=== PATIENT | male | born 1965 | race Caucasian/White ===

== ENCOUNTER 2021-02-07 16:00 | Outpatient (RCR) | payer OTHER, SELFPAY ==
--- NOTE | 2020-12-31 16:45 | PT.OIE ---
Current Diagnoses Pain in right shoulder (12/31/20) Visit Care Team Role Provider Type Javon Ramirez MD Attending Provider Non-Staff Primary Care Provider Referring Provider Specialty: Medical Address: [address] [place] [address], [place], [address] Email: Physical Therapy Initial Evaluation PT-OP-A Visit Information Start: 12/31/20 16:56 Freq: Status: Active Protocol: Document 12/31/20 16:00 DCW (Rec: 12/31/20 17:07 [facility] [id number]) Out-Patient Physical Therapy Visit Information Visit Information Visit Type Initial Evaluation Visit Start Time 16:00 Visit Stop Time 16:45 Total Visit Minutes 45 Visit Number 1 Number of LABORATORY TESTER Visits 0 Evaluation Information Evaluation Date 12/31/20 PT-OP-B Current Condition Start: 12/31/20 16:56 Freq: Status: Active Protocol: Document 12/31/20 16:00 DCW (Rec: 12/31/20 17:07 [facility] [id number]) Current Condition History of Current Condition Onset Date ~8 months Current Complaints Right shoulder pain, ROM limitations History of Current Condition Pt is a 55 year old male presenting with a right shoulder injury that occurred last fall. Pt notes he was throwing a ball with his dog, and suddenly got a huge pain along the top of his right shoulder blade. Notes the pain only lasted a few seconds, but then over the next few months, he began to lose more and more range of motion. Does admit that over the last month, he has noticed some mild improvements, so he believes he is beginning to get better, but his shoulder is still significantly restricted. Pt notes he is unable to lift anything overhead, has difficulty writing on a whiteboard, taking off shirts is painful, and he has even noticed some difficulty when playing his guitar. PT-OP-C Subjective Start: 12/31/20 16:56 Freq: Status: Active Protocol: Document 12/31/20 16:00 DCW (Rec: 12/31/20 17:07 [facility] [id number]) OP-PT Subjective Patient Comments Patient Comments My is recovering from a pretty recent shoulder surgery , and I was trying to do her exercises with her, and as she was getting better, my shoulder was getting even worse. Patient Reported Progress Improving Patient Questionnaires Quick Dash- Upper Extremity Quick Dash UE Score 36.36% Quick Dash UE Impairment 20 to 39% Impaired (Score 20- 39) OP-PT Pain Assessment Pain Assessment Grid Paper Pain Assessment Grid Completed Yes Location Right Shoulder Intensity 6 Scale Used Numeric (0 - 10) PT-OP-E Functional Tests Start: 12/31/20 16:56 Freq: Status: Active Protocol: Document 12/31/20 16:00 DCW (Rec: 01/03/21 09:39 DCW [id number]) Functional Tests Apley's Scratch Test Action 1- Left Posterior opposite shoulder Action 1- Right Anterior opposite shoulder Action 2- Left T5 Action 2- Right C7 Action 3- Left T10 Action 3- Right Right glute PT-OP-F Manual Assessment Start: 12/31/20 16:56 Freq: Status: Active Protocol: Document 12/31/20 16:00 DCW (Rec: 01/03/21 09:39 DCW [id number]) Manual Assessments Soft Tissue Assessment Soft Tissue Mobility Assessment Severe tone with tenderness to palpation 3/4: wincing and withdraw along right supraspinatus, right subscapularis, right upper trap PT-OP-K Range of Motion Start: 12/31/20 16:56 Freq: Status: Active Protocol: Document 12/31/20 16:00 DCW (Rec: 01/03/21 09:39 DCW [id number]) Shoulder Goniometric Range of Motion Shoulder Right Passive Flexion 156 Abduction 164 Right Active Testing Position Sitting Flexion 106 Abduction 84 External Rotation at 0 degrees Abduction 34 Internal Rotation Behind Back (text) Right glute max Left Active Shoulder ROM WFL Yes PT-OP-L Special Tests Start: 12/31/20 16:56 Freq: Status: Active Protocol: Document 12/31/20 16:00 DCW (Rec: 01/03/21 09:43 DCW [id number]) Special Tests Shoulder Special Tests Speed's Biceps Test Results Right LH Biceps pain Passive ER Rotator Cuff Test Results Negative Painful Arc Test Results Positive Right Lift-Off Rotator Cuff Test Results Unable to position Right Price Jossue Impingement Test Results Negative Grind Labrum Test Results Negative Empty Can Test Results Negative Drop Arm Rotator Cuff Test Results Positive Right Clunk Test Test Results Negative Belly Press Test Results Negative Apprehension Test Test Results Negative PT-OP-M Strength Start: 12/31/20 16:56 Freq: Status: Active Protocol: Document 12/31/20 16:00 DCW (Rec: 01/03/21 09:43 DC [id number]) Shoulder Strength Shoulder Manual Muscle Testing Right Flexion 3- Fair- Abduction (C5) 2 Poor External Rotation 3+ Fair+ Internal Rotation 5 Normal Left Flexion 5 Normal Abduction (C5) 5 Normal External Rotation 5 Normal Internal Rotation 5 Normal PT-OP-T Assessment and Plan Start: 12/31/20 16:56 Freq: Status: Active Protocol: Document 12/31/20 16:00 DCW (Rec: 12/31/20 17:22 DC [id number]) Physical Therapy Assessment Rehab Potential Rehabilitation Potential Good Evaluation Complexity Number of Personal Factors/Comorbidities 0 Number of Body Systems Impaired 1-2 Clinical Presentation at Evaluation Stable Impairments Impairments Functional Activities, Functional Mobility,Pain, Posture,ROM,Soft Tissue Mobility,Strength,Tone Goals Three Impairment Right shoulder weakness limits pt's ability to lift items overhead Knitted Goods Shaper Goal (LTG) Pt to MMT right shoulder flexion and abduction >3+/5 to improve overhead mobility. LTG Duration 03/02/21 Two Impairment Limited ROM creates difficulty for pt to don/doff shirt Knitted Goods Shaper Goal (LTG) Pt to demonstrate improved right shoulder internal rotation back to L3 and improved abduction to 120? to improve ability to don and doff his shirts LTG Duration 03/02/21 One Impairment Pt does not have an appropriate home exercise program Short Term Goal (STG) Pt to be independent and compliant with an appropriate HEP STG Duration 01/30/21 Assessment Summary Assessment Pt presents with signs and symptoms consistent with right supraspinatus injury. Without imagining, difficulty to determine strain vs tear, however pt is around eight months out from injury and is only now seeing improvement, which may suggest a more severe injury. Pt overall limited with right ROM, especially abduction (84?) and flexion (106?). Pt demonstrates positive special testing, including painful arc and drop arm, as well as moderate supraspinatus tone and decreased scapulothoracic rhythm. Pt should benefit from skilled therapy focusing on shoulder flexibility, strengthening, STM, and patient education. If pt does no progress with physical therapy, may need to consider an MRI to rule in or out underlying damage. Physical Therapy Plan Frequency and Duration Frequency of Treatment 2x/Week Duration of Treatment Two months Plan of Care Start Date 12/31/20 Plan of Care End Date 03/02/21 Therapeutic Interventions Therapeutic Interventions Home Exercise Program,Joint Mobilizations,Manual Therapy, Neuromuscular Re-education, Patient/Caregiver Education, Self-Care/Home Management,Soft Tissue Mobilization, Therapeutic Exercises Modalities Cold Pack/Ice Massage,Electric Stimulation,Hot Packs, Ultrasound Next Visit Focus/Plan Next Note Type Treatment Note Next Visit Plan Shoulder ROM/strengthening, STM
--- NOTE | 2020-12-31 16:45 | PT.OPPOC ---
Physical, Occupational & Speech Therapy At [facility] Current Diagnoses Pain in right shoulder (12/31/20) Visit Care Team Role Provider Type Javon Ramirez MD Attending Provider Non-Staff Primary Care Provider Referring Provider Specialty: Medical Address: [address] [place] [address], [place], [address] Email: Plan Of Care PT-OP-T Assessment and Plan Start: 12/31/20 16:56 Freq: Status: Active Protocol: Document 12/31/20 16:00 DCW (Rec: 12/31/20 17:22 DCW [id number]) Physical Therapy Assessment Rehab Potential Rehabilitation Potential Good Evaluation Complexity Number of Personal Factors/Comorbidities 0 Number of Body Systems Impaired 1-2 Clinical Presentation at Evaluation Stable Impairments Impairments Functional Activities, Functional Mobility,Pain, Posture,ROM,Soft Tissue Mobility,Strength,Tone Goals Three Impairment Right shoulder weakness limits pt's ability to lift items overhead Halfway Goal (LTG) Pt to MMT right shoulder flexion and abduction >3+/5 to improve overhead mobility. LTG Duration 03/02/21 Two Impairment Limited ROM creates difficulty for pt to don/doff shirt Steel Checker Goal (LTG) Pt to demonstrate improved right shoulder internal rotation back to L3 and improved abduction to 120? to improve ability to don and doff his shirts LTG Duration 03/02/21 One Impairment Pt does not have an appropriate home exercise program Short Term Goal (STG) Pt to be independent and compliant with an appropriate HEP STG Duration 01/30/21 Assessment Summary Assessment Pt presents with signs and symptoms consistent with right supraspinatus injury. Without imagining, difficulty to determine strain vs tear, however pt is around eight months out from injury and is only now seeing improvement, which may suggest a more severe injury. Pt overall limited with right ROM, especially abduction (84?) and flexion (106?). Pt demonstrates positive special testing, including painful arc and drop arm, as well as moderate supraspinatus tone and decreased scapulothoracic rhythm. Pt should benefit from skilled therapy focusing on shoulder flexibility, strengthening, STM, and patient education. If pt does no progress with physical therapy, may need to consider an MRI to rule in or out underlying damage. Physical Therapy Plan Frequency and Duration Frequency of Treatment 2x/Week Duration of Treatment Two months Plan of Care Start Date 12/31/20 Plan of Care End Date 03/02/21 Therapeutic Interventions Therapeutic Interventions Home Exercise Program,Joint Mobilizations,Manual Therapy, Neuromuscular Re-education, Patient/Caregiver Education, Self-Care/Home Management,Soft Tissue Mobilization, Therapeutic Exercises Modalities Cold Pack/Ice Massage,Electric Stimulation,Hot Packs, Ultrasound Next Visit Focus/Plan Next Note Type Treatment Note Next Visit Plan Shoulder ROM/strengthening, STM Plan of Care Dates Plan of Care Start Date 12/31/20 Plan of Care End Date 03/02/21 Electronically Signed by: João Elena, PT 01/03/21 0944 Please Sign and Return: I have reviewed this Plan of Care and certify that the skilled therapy services above are required to meet the patient?s needs. Physician Signature Date Printed Name and Credentials Clinical Instructor Signature Printed Name and Credentials
--- NOTE | 2021-01-04 16:45 | PT.OTN ---
Current Diagnoses Pain in right shoulder (01/04/21) Physical Therapy Treatment Note PT-OP-A Visit Information Start: 12/31/20 16:56 Freq: Status: Active Protocol: Document 01/04/21 16:00 DCW (Rec: 01/04/21 16:45 DCW [id number]) Out-Patient Physical Therapy Visit Information Visit Information Visit Type Treatment Note Visit Start Time 16:00 Visit Stop Time 16:45 Total Visit Minutes 45 Visit Number 2 Number of LEAF CONDITIONER Visits 0 Evaluation Information Evaluation Date 12/31/20 PT-OP-B Current Condition Start: 12/31/20 16:56 Freq: Status: Active Protocol: Document 12/31/20 16:00 DCW (Rec: 12/31/20 17:07 DCW [id number]) Current Condition History of Current Condition Onset Date ~8 months Current Complaints Right shoulder pain, ROM limitations History of Current Condition Pt is a 55 year old male presenting with a right shoulder injury that occurred last fall. Pt notes he was throwing a ball with his dog, and suddenly got a huge pain along the top of his right shoulder blade. Notes the pain only lasted a few seconds, but then over the next few months, he began to lose more and more range of motion. Does admit that over the last month, he has noticed some mild improvements, so he believes he is beginning to get better, but his shoulder is still significantly restricted. Pt notes he is unable to lift anything overhead, has difficulty writing on a whiteboard, taking off shirts is painful, and he has even noticed some difficulty when playing his guitar. PT-OP-C Subjective Start: 12/31/20 16:56 Freq: Status: Active Protocol: Document 01/04/21 16:00 DCW (Rec: 01/04/21 16:45 DCW [id number]) OP-PT Subjective Patient Comments Patient Comments Pt reports he has been working on the Deep Glint at home to keep his shoulder moving. PT-OP-E Functional Tests Start: 12/31/20 16:56 Freq: Status: Active Protocol: Document 12/31/20 16:00 DCW (Rec: 01/03/21 09:39 DCW [id number]) Functional Tests Zuriey's Scratch Test Action 1- Left Posterior opposite shoulder Action 1- Right Anterior opposite shoulder Action 2- Left T5 Action 2- Right C7 Action 3- Left T10 Action 3- Right Right glute PT-OP-F Manual Assessment Start: 12/31/20 16:56 Freq: Status: Active Protocol: Document 12/31/20 16:00 DCW (Rec: 01/03/21 09:39 DCW [id number]) Manual Assessments Soft Tissue Assessment Soft Tissue Mobility Assessment Severe tone with tenderness to palpation 3/4: wincing and withdraw along right supraspinatus, right subscapularis, right upper trap PT-OP-K Range of Motion Start: 12/31/20 16:56 Freq: Status: Active Protocol: Document 12/31/20 16:00 DCW (Rec: 01/03/21 09:39 DCW [id number]) Shoulder Goniometric Range of Motion Shoulder Right Passive Flexion 156 Abduction 164 Right Active Testing Position Sitting Flexion 106 Abduction 84 External Rotation at 0 degrees Abduction 34 Internal Rotation Behind Back (text) Right glute max Left Active Shoulder ROM WFL Yes PT-OP-L Special Tests Start: 12/31/20 16:56 Freq: Status: Active Protocol: Document 12/31/20 16:00 DCW (Rec: 01/03/21 09:43 DCW [id number]) Special Tests Shoulder Special Tests Speed's Biceps Test Results Right LH Biceps pain Passive ER Rotator Cuff Test Results Negative Painful Arc Test Results Positive Right Lift-Off Rotator Cuff Test Results Unable to position Right Price Jossue Impingement Test Results Negative Grind Labrum Test Results Negative Empty Can Test Results Negative Drop Arm Rotator Cuff Test Results Positive Right Clunk Test Test Results Negative Belly Press Test Results Negative Apprehension Test Test Results Negative PT-OP-M Strength Start: 12/31/20 16:56 Freq: Status: Active Protocol: Document 12/31/20 16:00 DCW (Rec: 01/03/21 09:43 DCW [id number]) Shoulder Strength Shoulder Manual Muscle Testing Right Flexion 3- Fair- Abduction (C5) 2 Poor External Rotation 3+ Fair+ Internal Rotation 5 Normal Left Flexion 5 Normal Abduction (C5) 5 Normal External Rotation 5 Normal Internal Rotation 5 Normal PT-OP-Q Treatments Start: 12/31/20 16:56 Freq: Status: Active Protocol: Document 01/04/21 16:00 DCW (Rec: 01/04/21 16:45 [facility] [id number]) Cardio Equipment Upper Body Ergometer (UBE) Duration (Minutes) 5 RPM 60 Seat Position 11 Height 2.5 Other Fwd/Bkwd Therapeutic Exercises Supine Exercises 1 Supine Exercise Name Serratus punch Side bilateral Standing Exercises 7 Standing Exercise Name PNF D1/D2 Flexion Side right Resistance 3# 6 Standing Exercise Name Shoulder Abduction Side right Resistance Lv 2 Equipment Used T-band Comments Pain-free ROM 5 Standing Exercise Name Shoulder Flexion Side right Resistance Lv 2 Equipment Used T-band Comments Pain-free ROM 4 Standing Exercise Name Shoulder ER/IR Side right Resistance Lv 2 Equipment Used T-band 3 Standing Exercise Name Rows Side bilateral Resistance Lv 2 Equipment Used T-band 2 Standing Exercise Name Shoulder Adduction Side right Resistance Lv 2 Equipment Used T-band 1 Standing Exercise Name Shoulder Extension Side bilateral Resistance Lv 2 Equipment Used T-band Manual Therapy Treatment Soft Tissue Mobilization 3 Body Location R Pec Mobilization Type Strumming,Sustained Pressure 2 Body Location R Subscap Mobilization Type Strumming,Sustained Pressure 1 Body Location R Upper Trap Mobilization Type Strumming,Sustained Pressure Joint Mobilizations 2 Joint R Scapulothoracic Direction Lateral Grade III 1 Joint R GH Direction Inf Grade III PT-OP-T Assessment and Plan Start: 12/31/20 16:56 Freq: Status: Active Protocol: Document 01/04/21 16:00 [facility] (Rec: 01/04/21 16:45 [facility] [id number]) Physical Therapy Assessment Impairments Impairments Functional Activities, Functional Mobility,Pain, Posture,ROM,Soft Tissue Mobility,Strength,Tone Goals Three Impairment Right shoulder weakness limits pt's ability to lift items overhead Half-Way Goal (LTG) Pt to MMT right shoulder flexion and abduction >3+/5 to improve overhead mobility. LTG Duration 03/02/21 Two Impairment Limited ROM creates difficulty for pt to don/doff shirt Senior Adults Director Goal (LTG) Pt to demonstrate improved right shoulder internal rotation back to L3 and improved abduction to 120? to improve ability to don and doff his shirts LTG Duration 03/02/21 One Impairment Pt does not have an appropriate home exercise program Short Term Goal (STG) Pt to be independent and compliant with an appropriate HEP STG Duration 01/30/21 Assessment Summary Assessment Pt tolerated treatment very well today, did not have any complaints of pain, but was more limited due to shoulder stiffness. Pt interested in pec stretch for HEP to help loosen up his shoulder. Physical Therapy Plan Frequency and Duration Frequency of Treatment 2x/Week Duration of Treatment Two months Plan of Care Start Date 12/31/20 Plan of Care End Date 03/02/21 Therapeutic Interventions Therapeutic Interventions Home Exercise Program,Joint Mobilizations,Manual Therapy, Neuromuscular Re-education, Patient/Caregiver Education, Self-Care/Home Management,Soft Tissue Mobilization, Therapeutic Exercises Modalities Cold Pack/Ice Massage,Electric Stimulation,Hot Packs, Ultrasound Next Visit Focus/Plan Next Note Type Treatment Note Next Visit Plan Shoulder ROM/strengthening, STM
--- NOTE | 2021-01-11 16:57 | PT.OTN ---
Current Diagnoses Pain in right shoulder (01/11/21) Physical Therapy Treatment Note PT-OP-A Visit Information Start: 12/31/20 16:56 Freq: Status: Active Protocol: Document 01/11/21 16:00 DCW (Rec: 01/11/21 16:56 DCW [id number]) Out-Patient Physical Therapy Visit Information Visit Information Visit Type Treatment Note Visit Start Time 16:00 Visit Stop Time 16:45 Total Visit Minutes 45 Visit Number 3 Number of CLERK OF SUPERIOR COURT Visits 0 Evaluation Information Evaluation Date 12/31/20 PT-OP-B Current Condition Start: 12/31/20 16:56 Freq: Status: Active Protocol: Document 12/31/20 16:00 DCW (Rec: 12/31/20 17:07 DCW [id number]) Current Condition History of Current Condition Onset Date ~8 months Current Complaints Right shoulder pain, ROM limitations History of Current Condition Pt is a 55 year old male presenting with a right shoulder injury that occurred last fall. Pt notes he was throwing a ball with his dog, and suddenly got a huge pain along the top of his right shoulder blade. Notes the pain only lasted a few seconds, but then over the next few months, he began to lose more and more range of motion. Does admit that over the last month, he has noticed some mild improvements, so he believes he is beginning to get better, but his shoulder is still significantly restricted. Pt notes he is unable to lift anything overhead, has difficulty writing on a whiteboard, taking off shirts is painful, and he has even noticed some difficulty when playing his guitar. PT-OP-C Subjective Start: 12/31/20 16:56 Freq: Status: Active Protocol: Document 01/11/21 16:00 DCW (Rec: 01/11/21 16:56 DCW [id number]) OP-PT Subjective Patient Comments Patient Comments I'm noticing a little less pain with certain things that had been more painful, like washing my hair. I'm working on putting my wallet in my right back pocket, which is still painful, but that's sort of my next measurement of progress, when I can do that without pain. PT-OP-E Functional Tests Start: 12/31/20 16:56 Freq: Status: Active Protocol: Document 12/31/20 16:00 DCW (Rec: 01/03/21 09:39 DCW [id number]) Functional Tests Apley's Scratch Test Action 1- Left Posterior opposite shoulder Action 1- Right Anterior opposite shoulder Action 2- Left T5 Action 2- Right C7 Action 3- Left T10 Action 3- Right Right glute PT-OP-F Manual Assessment Start: 12/31/20 16:56 Freq: Status: Active Protocol: Document 12/31/20 16:00 DCW (Rec: 01/03/21 09:39 DCW [id number]) Manual Assessments Soft Tissue Assessment Soft Tissue Mobility Assessment Severe tone with tenderness to palpation 3/4: wincing and withdraw along right supraspinatus, right subscapularis, right upper trap PT-OP-K Range of Motion Start: 12/31/20 16:56 Freq: Status: Active Protocol: Document 12/31/20 16:00 DCW (Rec: 01/03/21 09:39 DCW [id number]) Shoulder Goniometric Range of Motion Shoulder Right Passive Flexion 156 Abduction 164 Right Active Testing Position Sitting Flexion 106 Abduction 84 External Rotation at 0 degrees Abduction 34 Internal Rotation Behind Back (text) Right glute max Left Active Shoulder ROM WFL Yes PT-OP-L Special Tests Start: 12/31/20 16:56 Freq: Status: Active Protocol: Document 12/31/20 16:00 DCW (Rec: 01/03/21 09:43 DCW [id number]) Special Tests Shoulder Special Tests Speed's Biceps Test Results Right LH Biceps pain Passive ER Rotator Cuff Test Results Negative Painful Arc Test Results Positive Right Lift-Off Rotator Cuff Test Results Unable to position Right Price Jossue Impingement Test Results Negative Grind Labrum Test Results Negative Empty Can Test Results Negative Drop Arm Rotator Cuff Test Results Positive Right Clunk Test Test Results Negative Belly Press Test Results Negative Apprehension Test Test Results Negative PT-OP-M Strength Start: 12/31/20 16:56 Freq: Status: Active Protocol: Document 12/31/20 16:00 DCW (Rec: 01/03/21 09:43 DCW [id number]) Shoulder Strength Shoulder Manual Muscle Testing Right Flexion 3- Fair- Abduction (C5) 2 Poor External Rotation 3+ Fair+ Internal Rotation 5 Normal Left Flexion 5 Normal Abduction (C5) 5 Normal External Rotation 5 Normal Internal Rotation 5 Normal PT-OP-Q Treatments Start: 12/31/20 16:56 Freq: Status: Active Protocol: Document 01/11/21 16:00 DCW (Rec: 01/11/21 16:56 DCW [id number]) Cardio Equipment Upper Body Ergometer (UBE) Duration (Minutes) 5 RPM 60 Seat Position 11 Height 2.5 Other Fwd/Bkwd Therapeutic Exercises Supine Exercises 2 Supine Exercise Name ER/IR in 90/90 Side right Resistance 1.5 kg ball Standing Exercises 7 Standing Exercise Name PNF D1/D2 Flexion Side right Resistance 3# 6 Standing Exercise Name Shoulder Abduction Side right Resistance Lv 2 Equipment Used T-band Comments Pain-free ROM 5 Standing Exercise Name Shoulder Flexion Side right Resistance Lv 2 Equipment Used T-band Comments Pain-free ROM 4 Standing Exercise Name Shoulder ER/IR Side right Resistance Lv 2 Equipment Used T-band 3 Standing Exercise Name Rows Side bilateral Resistance Lv 2 Equipment Used T-band 2 Standing Exercise Name Shoulder Adduction Side right Resistance Lv 2 Equipment Used T-band 1 Standing Exercise Name Shoulder Extension Side bilateral Resistance Lv 2 Equipment Used T-band Manual Therapy Treatment Soft Tissue Mobilization 3 Body Location R Pec Mobilization Type Strumming,Sustained Pressure 2 Body Location R Subscap Mobilization Type Strumming,Sustained Pressure 1 Body Location R Upper Trap Mobilization Type Strumming,Sustained Pressure Joint Mobilizations 2 Joint R Scapulothoracic Direction Lateral Grade III 1 Joint R GH Direction Inf Grade III PT-OP-T Assessment and Plan Start: 12/31/20 16:56 Freq: Status: Active Protocol: Document 01/11/21 16:00 DCW (Rec: 01/11/21 16:56 DCW [id number]) Physical Therapy Assessment Impairments Impairments Functional Activities, Functional Mobility,Pain, Posture,ROM,Soft Tissue Mobility,Strength,Tone Goals Three Impairment Right shoulder weakness limits pt's ability to lift items overhead [facility] Goal (LTG) Pt to MMT right shoulder flexion and abduction >3+/5 to improve overhead mobility. LTG Duration 03/02/21 Two Impairment Limited ROM creates difficulty for pt to don/doff shirt [facility] Goal (LTG) Pt to demonstrate improved right shoulder internal rotation back to L3 and improved abduction to 120? to improve ability to don and doff his shirts LTG Duration 03/02/21 One Impairment Pt does not have an appropriate home exercise program Short Term Goal (STG) Pt to be independent and compliant with an appropriate HEP STG Duration 01/30/21 Assessment Summary Assessment Pt making great progress so far, showing improvement with ROM as well as decreasing pain levels. Pt has been consistent with working on PROM using pullies, but admits he has not been keeping up with strengthening exercises. Physical Therapy Plan Frequency and Duration Frequency of Treatment 2x/Week Duration of Treatment Two months Plan of Care Start Date 12/31/20 Plan of Care End Date 03/02/21 Therapeutic Interventions Therapeutic Interventions Home Exercise Program,Joint Mobilizations,Manual Therapy, Neuromuscular Re-education, Patient/Caregiver Education, Self-Care/Home Management,Soft Tissue Mobilization, Therapeutic Exercises Modalities Cold Pack/Ice Massage,Electric Stimulation,Hot Packs, Ultrasound Next Visit Focus/Plan Next Note Type Treatment Note Next Visit Plan Shoulder ROM/strengthening, STM
--- NOTE | 2021-01-14 16:50 | PT.OTN ---
Current Diagnoses Pain in right shoulder (01/14/21) Physical Therapy Treatment Note PT-OP-A Visit Information Start: 12/31/20 16:56 Freq: Status: Active Protocol: Document 01/14/21 16:00 DCW (Rec: 01/14/21 16:50 [facility] [id number]) Out-Patient Physical Therapy Visit Information Visit Information Visit Type Treatment Note Visit Start Time 16:00 Visit Stop Time 16:45 Total Visit Minutes 45 Visit Number 4 Number of SURFACE SH[employer] SUPERVISOR Visits 0 Evaluation Information Evaluation Date 12/31/20 PT-OP-B Current Condition Start: 12/31/20 16:56 Freq: Status: Active Protocol: Document 12/31/20 16:00 DCW (Rec: 12/31/20 17:07 DCW [id number]) Current Condition History of Current Condition Onset Date ~8 months Current Complaints Right shoulder pain, ROM limitations History of Current Condition Pt is a 55 year old male presenting with a right shoulder injury that occurred last fall. Pt notes he was throwing a ball with his dog, and suddenly got a huge pain along the top of his right shoulder blade. Notes the pain only lasted a few seconds, but then over the next few months, he began to lose more and more range of motion. Does admit that over the last month, he has noticed some mild improvements, so he believes he is beginning to get better, but his shoulder is still significantly restricted. Pt notes he is unable to lift anything overhead, has difficulty writing on a whiteboard, taking off shirts is painful, and he has even noticed some difficulty when playing his guitar. PT-OP-C Subjective Start: 12/31/20 16:56 Freq: Status: Active Protocol: Document 01/14/21 16:00 DCW (Rec: 01/14/21 16:50 DCW [id number]) OP-PT Subjective Patient Comments Patient Comments I was shoveling yesterday, so I'm interested to see how I do today. There were no real problems while I was doing it, though. I have a tendency to overdo things. PT-OP-E Functional Tests Start: 12/31/20 16:56 Freq: Status: Active Protocol: Document 12/31/20 16:00 DCW (Rec: 01/03/21 09:39 DCW [id number]) Functional Tests Apley's Scratch Test Action 1- Left Posterior opposite shoulder Action 1- Right Anterior opposite shoulder Action 2- Left T5 Action 2- Right C7 Action 3- Left T10 Action 3- Right Right glute PT-OP-F Manual Assessment Start: 12/31/20 16:56 Freq: Status: Active Protocol: Document 12/31/20 16:00 DCW (Rec: 01/03/21 09:39 DCW [id number]) Manual Assessments Soft Tissue Assessment Soft Tissue Mobility Assessment Severe tone with tenderness to palpation 3/4: wincing and withdraw along right supraspinatus, right subscapularis, right upper trap PT-OP-K Range of Motion Start: 12/31/20 16:56 Freq: Status: Active Protocol: Document 12/31/20 16:00 DCW (Rec: 01/03/21 09:39 DCW [id number]) Shoulder Goniometric Range of Motion Shoulder Right Passive Flexion 156 Abduction 164 Right Active Testing Position Sitting Flexion 106 Abduction 84 External Rotation at 0 degrees Abduction 34 Internal Rotation Behind Back (text) Right glute max Left Active Shoulder ROM WFL Yes PT-OP-L Special Tests Start: 12/31/20 16:56 Freq: Status: Active Protocol: Document 12/31/20 16:00 DCW (Rec: 01/03/21 09:43 DCW [id number]) Special Tests Shoulder Special Tests Speed's Biceps Test Results Right LH Biceps pain Passive ER Rotator Cuff Test Results Negative Painful Arc Test Results Positive Right Lift-Off Rotator Cuff Test Results Unable to position Right Price Jossue Impingement Test Results Negative Grind Labrum Test Results Negative Empty Can Test Results Negative Drop Arm Rotator Cuff Test Results Positive Right Clunk Test Test Results Negative Belly Press Test Results Negative Apprehension Test Test Results Negative PT-OP-M Strength Start: 12/31/20 16:56 Freq: Status: Active Protocol: Document 12/31/20 16:00 DCW (Rec: 01/03/21 09:43 DCW [id number]) Shoulder Strength Shoulder Manual Muscle Testing Right Flexion 3- Fair- Abduction (C5) 2 Poor External Rotation 3+ Fair+ Internal Rotation 5 Normal Left Flexion 5 Normal Abduction (C5) 5 Normal External Rotation 5 Normal Internal Rotation 5 Normal PT-OP-Q Treatments Start: 12/31/20 16:56 Freq: Status: Active Protocol: Document 01/14/21 16:00 DCW (Rec: 01/14/21 16:50 DCW [id number]) Cardio Equipment Upper Body Ergometer (UBE) Duration (Minutes) 5 RPM 60 Seat Position 11 Height 2.5 Other Fwd/Bkwd Therapeutic Exercises Standing Exercises 7 Standing Exercise Name PNF D1/D2 Flexion Side right Resistance 3# 6 Standing Exercise Name Shoulder Abduction Side right Resistance Lv 3 Equipment Used T-band Comments Pain-free ROM 5 Standing Exercise Name Shoulder Flexion Side right Resistance Lv 3 Equipment Used T-band Comments Pain-free ROM 4 Standing Exercise Name Shoulder ER/IR Side right Resistance Lv 3 Equipment Used T-band 3 Standing Exercise Name Rows Side bilateral Resistance Lv 3 Equipment Used T-band 2 Standing Exercise Name Shoulder Adduction Side right Resistance Lv 3 Equipment Used T-band 1 Standing Exercise Name Shoulder Extension Side bilateral Resistance Lv 3 Equipment Used T-band Other Exercises 1 Other Exercise Name Resisted US side-stepping Resistance Green Equipment Used T-band Manual Therapy Treatment Soft Tissue Mobilization 3 Body Location R Pec Mobilization Type Strumming,Sustained Pressure 2 Body Location R Subscap Mobilization Type Strumming,Sustained Pressure 1 Body Location R Upper Trap Mobilization Type Strumming,Sustained Pressure Joint Mobilizations 2 Joint R Scapulothoracic Direction Lateral Grade III 1 Joint R GH Direction Inf Grade III PT-OP-T Assessment and Plan Start: 12/31/20 16:56 Freq: Status: Active Protocol: Document 01/14/21 16:00 DCW (Rec: 01/14/21 16:50 DCW [id number]) Physical Therapy Assessment Impairments Impairments Functional Activities, Functional Mobility,Pain, Posture,ROM,Soft Tissue Mobility,Strength,Tone Goals Three Impairment Right shoulder weakness limits pt's ability to lift items overhead [employer] Goal (LTG) Pt to MMT right shoulder flexion and abduction >3+/5 to improve overhead mobility. LTG Duration 03/02/21 Two Impairment Limited ROM creates difficulty for pt to don/doff shirt [facility] Goal (LTG) Pt to demonstrate improved right shoulder internal rotation back to L3 and improved abduction to 120? to improve ability to don and doff his shirts LTG Duration 03/02/21 One Impairment Pt does not have an appropriate home exercise program Short Term Goal (STG) Pt to be independent and compliant with an appropriate HEP STG Duration 5/9/21 Assessment Summary Assessment Pt showing improved pain-free ROM today, no ill effects from shoveling yesterday. Physical Therapy Plan Frequency and Duration Frequency of Treatment 2x/Week Duration of Treatment Two months Plan of Care Start Date 12/31/20 Plan of Care End Date 03/02/21 Therapeutic Interventions Therapeutic Interventions Home Exercise Program,Joint Mobilizations,Manual Therapy, Neuromuscular Re-education, Patient/Caregiver Education, Self-Care/Home Management,Soft Tissue Mobilization, Therapeutic Exercises Modalities Cold Pack/Ice Massage,Electric Stimulation,Hot Packs, Ultrasound Next Visit Focus/Plan Next Note Type Treatment Note Next Visit Plan Shoulder ROM/strengthening, STM
--- NOTE | 2021-01-18 16:53 | PT.OTN ---
Current Diagnoses Pain in right shoulder (01/18/21) Physical Therapy Treatment Note PT-OP-A Visit Information Start: 12/31/20 16:56 Freq: Status: Active Protocol: Document 01/18/21 16:01 DC (Rec: 01/18/21 16:53 [facility] [id number]) Out-Patient Physical Therapy Visit Information Visit Information Visit Type Treatment Note Visit Start Time 16:01 Visit Stop Time 16:45 Total Visit Minutes 44 Visit Number 5 Number of PHARMACY CUSTOMER CARE SPECIALIST Visits 0 Evaluation Information Evaluation Date 12/31/20 PT-OP-B Current Condition Start: 12/31/20 16:56 Freq: Status: Active Protocol: Document 12/31/20 16:00 DCW (Rec: 12/31/20 17:07 DCW [id number]) Current Condition History of Current Condition Onset Date ~8 months Current Complaints Right shoulder pain, ROM limitations History of Current Condition Pt is a 55 year old male presenting with a right shoulder injury that occurred last fall. Pt notes he was throwing a ball with his dog, and suddenly got a huge pain along the top of his right shoulder blade. Notes the pain only lasted a few seconds, but then over the next few months, he began to lose more and more range of motion. Does admit that over the last month, he has noticed some mild improvements, so he believes he is beginning to get better, but his shoulder is still significantly restricted. Pt notes he is unable to lift anything overhead, has difficulty writing on a whiteboard, taking off shirts is painful, and he has even noticed some difficulty when playing his guitar. PT-OP-C Subjective Start: 12/31/20 16:56 Freq: Status: Active Protocol: Document 01/18/21 16:01 DCW (Rec: 01/18/21 16:53 MSW [id number]) OP-PT Subjective Patient Comments Patient Comments Pt notes he has noticed a few more things that used to cause him pain that he is now able to do, including an overhead basketball shooting motion using a stress ball on his desk, which had been very painful a month ago. PT-OP-E Functional Tests Start: 12/31/20 16:56 Freq: Status: Active Protocol: Document 12/31/20 16:00 DCW (Rec: 01/03/21 09:39 DCW [id number]) Functional Tests Apley's Scratch Test Action 1- Left Posterior opposite shoulder Action 1- Right Anterior opposite shoulder Action 2- Left T5 Action 2- Right C7 Action 3- Left T10 Action 3- Right Right glute PT-OP-F Manual Assessment Start: 12/31/20 16:56 Freq: Status: Active Protocol: Document 12/31/20 16:00 DCW (Rec: 01/03/21 09:39 DCW [id number]) Manual Assessments Soft Tissue Assessment Soft Tissue Mobility Assessment Severe tone with tenderness to palpation 3/4: wincing and withdraw along right supraspinatus, right subscapularis, right upper trap PT-OP-K Range of Motion Start: 12/31/20 16:56 Freq: Status: Active Protocol: Document 12/31/20 16:00 DCW (Rec: 01/03/21 09:39 DCW [id number]) Shoulder Goniometric Range of Motion Shoulder Right Passive Flexion 156 Abduction 164 Right Active Testing Position Sitting Flexion 106 Abduction 84 External Rotation at 0 degrees Abduction 34 Internal Rotation Behind Back (text) Right glute max Left Active Shoulder ROM WFL Yes PT-OP-L Special Tests Start: 12/31/20 16:56 Freq: Status: Active Protocol: Document 12/31/20 16:00 DCW (Rec: 01/03/21 09:43 DC [id number]) Special Tests Shoulder Special Tests Speed's Biceps Test Results Right LH Biceps pain Passive ER Rotator Cuff Test Results Negative Painful Arc Test Results Positive Right Lift-Off Rotator Cuff Test Results Unable to position Right Price Jossue Impingement Test Results Negative Grind Labrum Test Results Negative Empty Can Test Results Negative Drop Arm Rotator Cuff Test Results Positive Right Clunk Test Test Results Negative Belly Press Test Results Negative Apprehension Test Test Results Negative PT-OP-M Strength Start: 12/31/20 16:56 Freq: Status: Active Protocol: Document 12/31/20 16:00 DCW (Rec: 01/03/21 09:43 DCW [id number]) Shoulder Strength Shoulder Manual Muscle Testing Right Flexion 3- Fair- Abduction (C5) 2 Poor External Rotation 3+ Fair+ Internal Rotation 5 Normal Left Flexion 5 Normal Abduction (C5) 5 Normal External Rotation 5 Normal Internal Rotation 5 Normal PT-OP-Q Treatments Start: 12/31/20 16:56 Freq: Status: Active Protocol: Document 01/18/21 16:01 DCW (Rec: 01/18/21 16:53 DCW [id number]) Cardio Equipment Upper Body Ergometer (UBE) Duration (Minutes) 6 RPM 60 Seat Position 11 Height 2.5 Other Fwd/Bkwd Therapeutic Exercises Supine Exercises 2 Supine Exercise Name ER/IR in 90/90 Side right Resistance 1.5 kg ball Standing Exercises 7 Standing Exercise Name PNF D1/D2 Flexion Side right Resistance 3# 6 Standing Exercise Name Shoulder Abduction Side right Resistance Lv 3 Equipment Used T-band Comments Pain-free ROM 5 Standing Exercise Name Shoulder Flexion Side right Resistance Lv 3 Equipment Used T-band Comments Pain-free ROM 4 Standing Exercise Name Shoulder ER/IR Side right Resistance Lv 3 Equipment Used T-band 3 Standing Exercise Name Rows Side bilateral Resistance Lv 3 Equipment Used T-band 2 Standing Exercise Name Shoulder Adduction Side right Resistance Lv 3 Equipment Used T-band 1 Standing Exercise Name Shoulder Extension Side bilateral Resistance Lv 3 Equipment Used T-band Manual Therapy Treatment Soft Tissue Mobilization 3 Body Location R Pec Mobilization Type Strumming,Sustained Pressure 2 Body Location R Subscap Mobilization Type Strumming,Sustained Pressure 1 Body Location R Upper Trap Mobilization Type Strumming,Sustained Pressure Joint Mobilizations 2 Joint R Scapulothoracic Direction Lateral Grade III 1 Joint R GH Direction Inf Grade III PT-OP-T Assessment and Plan Start: 12/31/20 16:56 Freq: Status: Active Protocol: Document 01/18/21 16:01 DC (Rec: 01/18/21 16:53 [facility] [id number]) Physical Therapy Assessment Impairments Impairments Functional Activities, Functional Mobility,Pain, Posture,ROM,Soft Tissue Mobility,Strength,Tone Goals Three Impairment Right shoulder weakness limits pt's ability to lift items overhead [facility] Home Goal (LTG) Pt to MMT right shoulder flexion and abduction >3+/5 to improve overhead mobility. LTG Duration 03/02/21 Two Impairment Limited ROM creates difficulty for pt to don/doff shirt Care Home Goal (LTG) Pt to demonstrate improved right shoulder internal rotation back to L3 and improved abduction to 120? to improve ability to don and doff his shirts LTG Duration 03/02/21 One Impairment Pt does not have an appropriate home exercise program Short Term Goal (STG) Pt to be independent and compliant with an appropriate HEP STG Duration 01/30/21 Assessment Summary Assessment Pt continues to progress, fewer limitations with daily activities. Physical Therapy Plan Frequency and Duration Frequency of Treatment 2x/Week Duration of Treatment Two months Plan of Care Start Date 12/31/20 Plan of Care End Date 03/02/21 Therapeutic Interventions Therapeutic Interventions Home Exercise Program,Joint Mobilizations,Manual Therapy, Neuromuscular Re-education, Patient/Caregiver Education, Self-Care/Home Management,Soft Tissue Mobilization, Therapeutic Exercises Modalities Cold Pack/Ice Massage,Electric Stimulation,Hot Packs, Ultrasound Next Visit Focus/Plan Next Note Type Treatment Note Next Visit Plan Shoulder ROM/strengthening, STM
--- NOTE | 2021-01-21 16:49 | PT.OTN ---
Current Diagnoses Pain in right shoulder (01/21/21) Physical Therapy Treatment Note PT-OP-A Visit Information Start: 12/31/20 16:56 Freq: Status: Active Protocol: Document 01/21/21 16:01 DCW (Rec: 01/21/21 16:49 [facility] [id number]) Out-Patient Physical Therapy Visit Information Visit Information Visit Type Treatment Note Visit Start Time 16:01 Visit Stop Time 16:45 Total Visit Minutes 44 Visit Number 6 Number of LOTTERY MANAGER Visits 0 Evaluation Information Evaluation Date 12/31/20 PT-OP-B Current Condition Start: 12/31/20 16:56 Freq: Status: Active Protocol: Document 12/31/20 16:00 DCW (Rec: 12/31/20 17:07 DCW [id number]) Current Condition History of Current Condition Onset Date ~8 months Current Complaints Right shoulder pain, ROM limitations History of Current Condition Pt is a 55 year old male presenting with a right shoulder injury that occurred last fall. Pt notes he was throwing a ball with his dog, and suddenly got a huge pain along the top of his right shoulder blade. Notes the pain only lasted a few seconds, but then over the next few months, he began to lose more and more range of motion. Does admit that over the last month, he has noticed some mild improvements, so he believes he is beginning to get better, but his shoulder is still significantly restricted. Pt notes he is unable to lift anything overhead, has difficulty writing on a whiteboard, taking off shirts is painful, and he has even noticed some difficulty when playing his guitar. PT-OP-C Subjective Start: 12/31/20 16:56 Freq: Status: Active Protocol: Document 01/21/21 16:01 DCW (Rec: 01/21/21 16:49 NVW [id number]) OP-PT Subjective Patient Comments Patient Comments Pt reports he is doing pretty good overall, is actually planning on having a friend who is a massage therapst to work on his shoulder doing some deep tissue. PT-OP-E Functional Tests Start: 12/31/20 16:56 Freq: Status: Active Protocol: Document 12/31/20 16:00 DCW (Rec: 01/03/21 09:39 DCW [id number]) Functional Tests Apley's Scratch Test Action 1- Left Posterior opposite shoulder Action 1- Right Anterior opposite shoulder Action 2- Left T5 Action 2- Right C7 Action 3- Left T10 Action 3- Right Right glute PT-OP-F Manual Assessment Start: 12/31/20 16:56 Freq: Status: Active Protocol: Document 12/31/20 16:00 DCW (Rec: 01/03/21 09:39 DCW [id number]) Manual Assessments Soft Tissue Assessment Soft Tissue Mobility Assessment Severe tone with tenderness to palpation 3/4: wincing and withdraw along right supraspinatus, right subscapularis, right upper trap PT-OP-K Range of Motion Start: 12/31/20 16:56 Freq: Status: Active Protocol: Document 12/31/20 16:00 DCW (Rec: 01/03/21 09:39 DCW [id number]) Shoulder Goniometric Range of Motion Shoulder Right Passive Flexion 156 Abduction 164 Right Active Testing Position Sitting Flexion 106 Abduction 84 External Rotation at 0 degrees Abduction 34 Internal Rotation Behind Back (text) Right glute max Left Active Shoulder ROM WFL Yes PT-OP-L Special Tests Start: 12/31/20 16:56 Freq: Status: Active Protocol: Document 12/31/20 16:00 DCW (Rec: 01/03/21 09:43 DCW [id number]) Special Tests Shoulder Special Tests Speed's Biceps Test Results Right LH Biceps pain Passive ER Rotator Cuff Test Results Negative Painful Arc Test Results Positive Right Lift-Off Rotator Cuff Test Results Unable to position Right Price Jossue Impingement Test Results Negative Grind Labrum Test Results Negative Empty Can Test Results Negative Drop Arm Rotator Cuff Test Results Positive Right Clunk Test Test Results Negative Belly Press Test Results Negative Apprehension Test Test Results Negative PT-OP-M Strength Start: 12/31/20 16:56 Freq: Status: Active Protocol: Document 12/31/20 16:00 DCW (Rec: 01/03/21 09:43 DCW [id number]) Shoulder Strength Shoulder Manual Muscle Testing Right Flexion 3- Fair- Abduction (C5) 2 Poor External Rotation 3+ Fair+ Internal Rotation 5 Normal Left Flexion 5 Normal Abduction (C5) 5 Normal External Rotation 5 Normal Internal Rotation 5 Normal PT-OP-Q Treatments Start: 12/31/20 16:56 Freq: Status: Active Protocol: Document 01/21/21 16:01 [facility] (Rec: 01/21/21 16:49 [facility] [id number]) Cardio Equipment Upper Body Ergometer (UBE) Duration (Minutes) 6 RPM 60 Seat Position 11 Height 2.5 Other Fwd/Bkwd Therapeutic Exercises Supine Exercises 2 Supine Exercise Name ER/IR in 90/90 Side right Resistance 1.5 kg ball Standing Exercises 7 Standing Exercise Name PNF D1/D2 Flexion Side right Resistance 3# 6 Standing Exercise Name Shoulder Abduction Side right Resistance Lv 3 Equipment Used T-band Comments Pain-free ROM 5 Standing Exercise Name Shoulder Flexion Side right Resistance Lv 3 Equipment Used T-band Comments Pain-free ROM 4 Standing Exercise Name Shoulder ER/IR Side right Resistance Lv 3 Equipment Used T-band 3 Standing Exercise Name Rows Side bilateral Resistance Lv 3 Equipment Used T-band 2 Standing Exercise Name Shoulder Adduction Side right Resistance Lv 3 Equipment Used T-band 1 Standing Exercise Name Shoulder Extension Side bilateral Resistance Lv 3 Equipment Used T-band Other Exercises 1 Other Exercise Name Resisted US side-stepping Resistance Green Equipment Used T-band Manual Therapy Treatment Soft Tissue Mobilization 3 Body Location R Pec Mobilization Type Strumming,Sustained Pressure 2 Body Location R Subscap Mobilization Type Strumming,Sustained Pressure 1 Body Location R Upper Trap Mobilization Type Strumming,Sustained Pressure Joint Mobilizations 2 Joint R Scapulothoracic Direction Lateral Grade III 1 Joint R GH Direction Inf Grade III PT-OP-T Assessment and Plan Start: 12/31/20 16:56 Freq: Status: Active Protocol: Document 01/21/21 16:01 [facility] (Rec: 01/21/21 16:49 [facility] [id number]) Physical Therapy Assessment Impairments Impairments Functional Activities, Functional Mobility,Pain, Posture,ROM,Soft Tissue Mobility,Strength,Tone Goals Three Impairment Right shoulder weakness limits pt's ability to lift items overhead Prison Goal (LTG) Pt to MMT right shoulder flexion and abduction >3+/5 to improve overhead mobility. LTG Duration 03/02/21 Two Impairment Limited ROM creates difficulty for pt to don/doff shirt Assembler Filters Goal (LTG) Pt to demonstrate improved right shoulder internal rotation back to L3 and improved abduction to 120? to improve ability to don and doff his shirts LTG Duration 03/02/21 One Impairment Pt does not have an appropriate home exercise program Short Term Goal (STG) Pt to be independent and compliant with an appropriate HEP STG Duration 01/30/21 Assessment Summary Assessment Improving ROM, much better with pain-control. Pt able to perform most household activities with no limitations . Should do well with decrease in frequency to 1x/week. Physical Therapy Plan Frequency and Duration Frequency of Treatment 2x/Week Duration of Treatment Two months Plan of Care Start Date 12/31/20 Plan of Care End Date 03/02/21 Therapeutic Interventions Therapeutic Interventions Home Exercise Program,Joint Mobilizations,Manual Therapy, Neuromuscular Re-education, Patient/Caregiver Education, Self-Care/Home Management,Soft Tissue Mobilization, Therapeutic Exercises Modalities Cold Pack/Ice Massage,Electric Stimulation,Hot Packs, Ultrasound Next Visit Focus/Plan Next Note Type Treatment Note Next Visit Plan Shoulder ROM/strengthening, STM
--- NOTE | 2021-01-26 13:57 | PT.OTN ---
Current Diagnoses Pain in right shoulder (01/26/21) Physical Therapy Treatment Note PT-OP-A Visit Information Start: 12/31/20 16:56 Freq: Status: Active Protocol: Document 01/26/21 13:45 AW (Rec: 01/26/21 13:53 AW [id number]) Out-Patient Physical Therapy Visit Information Visit Information Visit Type Treatment Note Visit Start Time 13:00 Visit Stop Time 13:45 Total Visit Minutes 45 Visit Number 7 Number of SENIOR NETWORK SECURITY ARCHITECT Visits 0 Evaluation Information Evaluation Date 12/31/20 PT-OP-B Current Condition Start: 12/31/20 16:56 Freq: Status: Active Protocol: Document 12/31/20 16:00 DCW (Rec: 12/31/20 17:07 DCW [id number]) Current Condition History of Current Condition Onset Date ~8 months Current Complaints Right shoulder pain, ROM limitations History of Current Condition Pt is a 55 year old male presenting with a right shoulder injury that occurred last fall. Pt notes he was throwing a ball with his dog, and suddenly got a huge pain along the top of his right shoulder blade. Notes the pain only lasted a few seconds, but then over the next few months, he began to lose more and more range of motion. Does admit that over the last month, he has noticed some mild improvements, so he believes he is beginning to get better, but his shoulder is still significantly restricted. Pt notes he is unable to lift anything overhead, has difficulty writing on a whiteboard, taking off shirts is painful, and he has even noticed some difficulty when playing his guitar. PT-OP-C Subjective Start: 12/31/20 16:56 Freq: Status: Active Protocol: Document 01/26/21 13:45 AW (Rec: 01/26/21 13:53 AW [id number]) OP-PT Subjective Patient Comments Patient Comments Pt reports overall improvement . He noticed he is now able to comb his hair using right hand and tuck in his shirts with minimal discomfort. PT-OP-E Functional Tests Start: 12/31/20 16:56 Freq: Status: Active Protocol: Document 12/31/20 16:00 DCW (Rec: 01/03/21 09:39 DCW [id number]) Functional Tests Zuriey's Scratch Test Action 1- Left Posterior opposite shoulder Action 1- Right Anterior opposite shoulder Action 2- Left T5 Action 2- Right C7 Action 3- Left T10 Action 3- Right Right glute PT-OP-F Manual Assessment Start: 12/31/20 16:56 Freq: Status: Active Protocol: Document 12/31/20 16:00 DCW (Rec: 01/03/21 09:39 DCW [id number]) Manual Assessments Soft Tissue Assessment Soft Tissue Mobility Assessment Severe tone with tenderness to palpation 3/4: wincing and withdraw along right supraspinatus, right subscapularis, right upper trap PT-OP-K Range of Motion Start: 12/31/20 16:56 Freq: Status: Active Protocol: Document 12/31/20 16:00 DCW (Rec: 01/03/21 09:39 DCW [id number]) Shoulder Goniometric Range of Motion Shoulder Right Passive Flexion 156 Abduction 164 Right Active Testing Position Sitting Flexion 106 Abduction 84 External Rotation at 0 degrees Abduction 34 Internal Rotation Behind Back (text) Right glute max Left Active Shoulder ROM WFL Yes PT-OP-L Special Tests Start: 12/31/20 16:56 Freq: Status: Active Protocol: Document 12/31/20 16:00 DCW (Rec: 01/03/21 09:43 DCW [id number]) Special Tests Shoulder Special Tests Speed's Biceps Test Results Right LH Biceps pain Passive ER Rotator Cuff Test Results Negative Painful Arc Test Results Positive Right Lift-Off Rotator Cuff Test Results Unable to position Right Price Jossue Impingement Test Results Negative Grind Labrum Test Results Negative Empty Can Test Results Negative Drop Arm Rotator Cuff Test Results Positive Right Clunk Test Test Results Negative Belly Press Test Results Negative Apprehension Test Test Results Negative PT-OP-M Strength Start: 12/31/20 16:56 Freq: Status: Active Protocol: Document 12/31/20 16:00 DCW (Rec: 01/03/21 09:43 DCW [id number]) Shoulder Strength Shoulder Manual Muscle Testing Right Flexion 3- Fair- Abduction (C5) 2 Poor External Rotation 3+ Fair+ Internal Rotation 5 Normal Left Flexion 5 Normal Abduction (C5) 5 Normal External Rotation 5 Normal Internal Rotation 5 Normal PT-OP-Q Treatments Start: 12/31/20 16:56 Freq: Status: Active Protocol: Document 01/26/21 13:45 AW (Rec: 01/26/21 13:53 AW [id number]) Cardio Equipment Upper Body Ergometer (UBE) Duration (Minutes) 6 RPM 60 Seat Position 11 Height 2.5 Other Fwd/Bkwd Therapeutic Exercises Supine Exercises 3 Supine Exercise Name pec stretch Side bilateral Equipment Used half foam roll Reps/Minutes 2 min Comments R elevated compared with L 2 Supine Exercise Name ER/IR in 90/90 Side right Resistance 1.5 kg ball Standing Exercises doorway pec stretch Standing Exercise Name doorway pec stretch Side bilateral Comments increased R trunk rotation; pt unable to correct isometric ER/IR walkout Standing Exercise Name isometric ER/IR walkout Side right Resistance level 1 Equipment Used TB Reps/Minutes 4 laps each direction 5 Standing Exercise Name Shoulder Flexion Side right Resistance Lv 3 Equipment Used T-band Comments Pain-free ROM 4 Standing Exercise Name Shoulder ER/IR Side right Resistance Lv 3 Equipment Used T-band 3 Standing Exercise Name Rows Side bilateral Resistance Lv 3 Equipment Used T-band 2 Standing Exercise Name Shoulder Adduction Side right Resistance Lv 3 Equipment Used T-band 1 Standing Exercise Name Shoulder Extension Side bilateral Resistance Lv 3 Equipment Used T-band Manual Therapy Treatment Soft Tissue Mobilization 3 Body Location R Pec Mobilization Type Strumming,Sustained Pressure 1 Body Location R Upper Trap Mobilization Type Strumming,Sustained Pressure Joint Mobilizations 2 Joint R Scapulothoracic Direction Lateral Grade III 1 Joint R GH Direction Inf Grade III PT-OP-T Assessment and Plan Start: 12/31/20 16:56 Freq: Status: Active Protocol: Document 01/26/21 13:45 AW (Rec: 01/26/21 13:57 AW [id number]) Physical Therapy Assessment Impairments Impairments Functional Activities, Functional Mobility,Pain, Posture,ROM,Soft Tissue Mobility,Strength,Tone Goals Three Impairment Right shoulder weakness limits pt's ability to lift items overhead Assisted Goal (LTG) Pt to MMT right shoulder flexion and abduction >3+/5 to improve overhead mobility. LTG Duration 03/02/21 Two Impairment Limited ROM creates difficulty for pt to don/doff shirt Philosophy And Religion Instructor Goal (LTG) Pt to demonstrate improved right shoulder internal rotation back to L3 and improved abduction to 120? to improve ability to don and doff his shirts LTG Duration 03/02/21 One Impairment Pt does not have an appropriate home exercise program Short Term Goal (STG) Pt to be independent and compliant with an appropriate HEP STG Duration 01/30/21 Assessment Summary Assessment Pt reporting reduced pain and improved ROM, making ADL management easier. Pt much tighter in right pectoral muscles than left. Instructed pt in standing unilateral pec stretch which he could do at home. Physical Therapy Plan Frequency and Duration Frequency of Treatment 2x/Week Duration of Treatment Two months Plan of Care Start Date 12/31/20 Plan of Care End Date 03/02/21 Therapeutic Interventions Therapeutic Interventions Home Exercise Program,Joint Mobilizations,Manual Therapy, Neuromuscular Re-education, Patient/Caregiver Education, Self-Care/Home Management,Soft Tissue Mobilization, Therapeutic Exercises Modalities Cold Pack/Ice Massage,Electric Stimulation,Hot Packs, Ultrasound Next Visit Focus/Plan Next Note Type Treatment Note Next Visit Plan Shoulder ROM/strengthening, STM
--- NOTE | 2021-02-07 16:47 | PT.OTN ---
Current Diagnoses Pain in right shoulder (02/07/21) Physical Therapy Treatment Note PT-OP-A Visit Information Start: 12/31/20 16:56 Freq: Status: Active Protocol: Document 02/07/21 16:02 DCW (Rec: 02/07/21 16:46 [facility] [id number]) Out-Patient Physical Therapy Visit Information Visit Information Visit Type Treatment Note Visit Start Time 16:02 Visit Stop Time 16:45 Total Visit Minutes 43 Visit Number 8 Number of DIRECTOR OF INTELLIGENCE Visits 0 Evaluation Information Evaluation Date 12/31/20 PT-OP-B Current Condition Start: 12/31/20 16:56 Freq: Status: Active Protocol: Document 12/31/20 16:00 DCW (Rec: 12/31/20 17:07 DCW [id number]) Current Condition History of Current Condition Onset Date ~8 months Current Complaints Right shoulder pain, ROM limitations History of Current Condition Pt is a 55 year old male presenting with a right shoulder injury that occurred last fall. Pt notes he was throwing a ball with his dog, and suddenly got a huge pain along the top of his right shoulder blade. Notes the pain only lasted a few seconds, but then over the next few months, he began to lose more and more range of motion. Does admit that over the last month, he has noticed some mild improvements, so he believes he is beginning to get better, but his shoulder is still significantly restricted. Pt notes he is unable to lift anything overhead, has difficulty writing on a whiteboard, taking off shirts is painful, and he has even noticed some difficulty when playing his guitar. PT-OP-C Subjective Start: 12/31/20 16:56 Freq: Status: Active Protocol: Document 02/07/21 16:02 DCW (Rec: 02/07/21 16:46 LAW [id number]) OP-PT Subjective Patient Comments Patient Comments Pt continues to feel more improvement with his shoulder. Now feeling comfortable to reach back and put his wallet in his back pocket, and able to reach higher without pain. PT-OP-E Functional Tests Start: 12/31/20 16:56 Freq: Status: Active Protocol: Document 12/31/20 16:00 DCW (Rec: 01/03/21 09:39 DCW [id number]) Functional Tests Zuriey's Scratch Test Action 1- Left Posterior opposite shoulder Action 1- Right Anterior opposite shoulder Action 2- Left T5 Action 2- Right C7 Action 3- Left T10 Action 3- Right Right glute PT-OP-F Manual Assessment Start: 12/31/20 16:56 Freq: Status: Active Protocol: Document 12/31/20 16:00 DCW (Rec: 01/03/21 09:39 DCW [id number]) Manual Assessments Soft Tissue Assessment Soft Tissue Mobility Assessment Severe tone with tenderness to palpation 3/4: wincing and withdraw along right supraspinatus, right subscapularis, right upper trap PT-OP-K Range of Motion Start: 12/31/20 16:56 Freq: Status: Active Protocol: Document 12/31/20 16:00 DCW (Rec: 01/03/21 09:39 DCW [id number]) Shoulder Goniometric Range of Motion Shoulder Right Passive Flexion 156 Abduction 164 Right Active Testing Position Sitting Flexion 106 Abduction 84 External Rotation at 0 degrees Abduction 34 Internal Rotation Behind Back (text) Right glute max Left Active Shoulder ROM WFL Yes PT-OP-L Special Tests Start: 12/31/20 16:56 Freq: Status: Active Protocol: Document 12/31/20 16:00 DCW (Rec: 01/03/21 09:43 DCW [id number]) Special Tests Shoulder Special Tests Speed's Biceps Test Results Right LH Biceps pain Passive ER Rotator Cuff Test Results Negative Painful Arc Test Results Positive Right Lift-Off Rotator Cuff Test Results Unable to position Right Price Jossue Impingement Test Results Negative Grind Labrum Test Results Negative Empty Can Test Results Negative Drop Arm Rotator Cuff Test Results Positive Right Clunk Test Test Results Negative Belly Press Test Results Negative Apprehension Test Test Results Negative PT-OP-M Strength Start: 12/31/20 16:56 Freq: Status: Active Protocol: Document 12/31/20 16:00 DCW (Rec: 01/03/21 09:43 DCW [id number]) Shoulder Strength Shoulder Manual Muscle Testing Right Flexion 3- Fair- Abduction (C5) 2 Poor External Rotation 3+ Fair+ Internal Rotation 5 Normal Left Flexion 5 Normal Abduction (C5) 5 Normal External Rotation 5 Normal Internal Rotation 5 Normal PT-OP-Q Treatments Start: 12/31/20 16:56 Freq: Status: Active Protocol: Document 02/07/21 16:02 DCW (Rec: 02/07/21 16:46 DCW [id number]) Cardio Equipment Upper Body Ergometer (UBE) Duration (Minutes) 6 RPM 60 Seat Position 11 Height 2.5 Other Fwd/Bkwd Therapeutic Exercises Supine Exercises 2 Supine Exercise Name ER/IR in 90/90 Side right Resistance 1.5 kg ball Standing Exercises 6 Standing Exercise Name Shoulder Abduction Side right Resistance Lv 3 Equipment Used T-band Comments Pain-free ROM 5 Standing Exercise Name Shoulder Flexion Side right Resistance Lv 4 Equipment Used T-band Comments Pain-free ROM 4 Standing Exercise Name Shoulder ER/IR Side right Resistance Lv 4 Equipment Used T-band 3 Standing Exercise Name Rows Side bilateral Resistance Lv 4 Equipment Used T-band 2 Standing Exercise Name Shoulder Adduction Side right Resistance Lv 4 Equipment Used T-band 1 Standing Exercise Name Shoulder Extension Side bilateral Resistance Lv 4 Equipment Used T-band Other Exercises 1 Other Exercise Name Resisted US side-stepping Resistance Green Equipment Used T-band Manual Therapy Treatment Soft Tissue Mobilization 3 Body Location R Pec Mobilization Type Strumming,Sustained Pressure 2 Body Location R Subscap Mobilization Type Strumming,Sustained Pressure 1 Body Location R Upper Trap Mobilization Type Strumming,Sustained Pressure Joint Mobilizations 2 Joint R Scapulothoracic Direction Lateral Grade III 1 Joint R GH Direction Inf Grade III PT-OP-T Assessment and Plan Start: 12/31/20 16:56 Freq: Status: Active Protocol: Document 02/07/21 16:02 DCW (Rec: 02/07/21 16:46 DCW [id number]) Physical Therapy Assessment Impairments Impairments Functional Activities, Functional Mobility,Pain, Posture,ROM,Soft Tissue Mobility,Strength,Tone Goals Three Impairment Right shoulder weakness limits pt's ability to lift items overhead Mcfp Goal (LTG) Pt to MMT right shoulder flexion and abduction >3+/5 to improve overhead mobility. LTG Duration 03/02/21 Two Impairment Limited ROM creates difficulty for pt to don/doff shirt Health Specialist Goal (LTG) Pt to demonstrate improved right shoulder internal rotation back to L3 and improved abduction to 120? to improve ability to don and doff his shirts LTG Duration 03/02/21 One Impairment Pt does not have an appropriate home exercise program Short Term Goal (STG) Pt to be independent and compliant with an appropriate HEP STG Duration 01/30/21 Assessment Summary Assessment Pt tolerated treatment very well today, showing improved shoulder ROM in all areas. Physical Therapy Plan Frequency and Duration Frequency of Treatment 2x/Week Duration of Treatment Two months Plan of Care Start Date 12/31/20 Plan of Care End Date 03/02/21 Therapeutic Interventions Therapeutic Interventions Home Exercise Program,Joint Mobilizations,Manual Therapy, Neuromuscular Re-education, Patient/Caregiver Education, Self-Care/Home Management,Soft Tissue Mobilization, Therapeutic Exercises Modalities Cold Pack/Ice Massage,Electric Stimulation,Hot Packs, Ultrasound Next Visit Focus/Plan Next Note Type Treatment Note Next Visit Plan Shoulder ROM/strengthening, STM
--- NOTE | 2021-04-22 15:35 | PT.OPDS ---
Current Diagnoses Pain in right shoulder (02/07/21) Visit Care Team Role Provider Type Javon Ramirez MD Attending Provider Non-Staff Primary Care Provider Referring Provider Specialty: Medical Address: [address] [place] [address], [id number] Email: Visit Number Visit Number 8 Discharge Summary PT-OP-B Current Condition Start: 12/31/20 16:56 Freq: Status: Active Protocol: Document 12/31/20 16:00 DCW (Rec: 12/31/20 17:07 DCW [id number]) Current Condition History of Current Condition Onset Date ~8 months Current Complaints Right shoulder pain, ROM limitations History of Current Condition Pt is a 55 year old male presenting with a right shoulder injury that occurred last fall. Pt notes he was throwing a ball with his dog, and suddenly got a huge pain along the top of his right shoulder blade. Notes the pain only lasted a few seconds, but then over the next few months, he began to lose more and more range of motion. Does admit that over the last month, he has noticed some mild improvements, so he believes he is beginning to get better, but his shoulder is still significantly restricted. Pt notes he is unable to lift anything overhead, has difficulty writing on a whiteboard, taking off shirts is painful, and he has even noticed some difficulty when playing his guitar. PT-OP-C Subjective Start: 12/31/20 16:56 Freq: Status: Active Protocol: Document 02/07/21 16:02 DCW (Rec: 02/07/21 16:46 DCW [id number]) OP-PT Subjective Patient Comments Patient Comments Pt continues to feel more improvement with his shoulder. Now feeling comfortable to reach back and put his wallet in his back pocket, and able to reach higher without pain. PT-OP-E Functional Tests Start: 12/31/20 16:56 Freq: Status: Active Protocol: Document 12/31/20 16:00 DCW (Rec: 01/03/21 09:39 DCW [id number]) Functional Tests Apley's Scratch Test Action 1- Left Posterior opposite shoulder Action 1- Right Anterior opposite shoulder Action 2- Left T5 Action 2- Right C7 Action 3- Left T10 Action 3- Right Right glute PT-OP-F Manual Assessment Start: 12/31/20 16:56 Freq: Status: Active Protocol: Document 12/31/20 16:00 DCW (Rec: 01/03/21 09:39 DCW [id number]) Manual Assessments Soft Tissue Assessment Soft Tissue Mobility Assessment Severe tone with tenderness to palpation 3/4: wincing and withdraw along right supraspinatus, right subscapularis, right upper trap PT-OP-K Range of Motion Start: 12/31/20 16:56 Freq: Status: Active Protocol: Document 12/31/20 16:00 DCW (Rec: 01/03/21 09:39 DCW [id number]) Shoulder Goniometric Range of Motion Shoulder Right Passive Flexion 156 Abduction 164 Right Active Testing Position Sitting Flexion 106 Abduction 84 External Rotation at 0 degrees Abduction 34 Internal Rotation Behind Back (text) Right glute max Left Active Shoulder ROM WFL Yes PT-OP-L Special Tests Start: 12/31/20 16:56 Freq: Status: Active Protocol: Document 12/31/20 16:00 DCW (Rec: 01/03/21 09:43 DCW [id number]) Special Tests Shoulder Special Tests Speed's Biceps Test Results Right LH Biceps pain Passive ER Rotator Cuff Test Results Negative Painful Arc Test Results Positive Right Lift-Off Rotator Cuff Test Results Unable to position Right Price Jossue Impingement Test Results Negative Grind Labrum Test Results Negative Empty Can Test Results Negative Drop Arm Rotator Cuff Test Results Positive Right Clunk Test Test Results Negative Belly Press Test Results Negative Apprehension Test Test Results Negative PT-OP-M Strength Start: 12/31/20 16:56 Freq: Status: Active Protocol: Document 12/31/20 16:00 DCW (Rec: 01/03/21 09:43 DCW [id number]) Shoulder Strength Shoulder Manual Muscle Testing Right Flexion 3- Fair- Abduction (C5) 2 Poor External Rotation 3+ Fair+ Internal Rotation 5 Normal Left Flexion 5 Normal Abduction (C5) 5 Normal External Rotation 5 Normal Internal Rotation 5 Normal PT-OP-T Assessment and Plan Start: 12/31/20 16:56 Freq: Status: Active Protocol: Document 04/22/21 15:33 DCW (Rec: 04/22/21 15:35 DCW [id number]) Physical Therapy Assessment Assessment Summary Assessment Pt canceled his last appointment, and has not scheduled any follow-up appointments, and has now not been seen in more than 2 months. Pt will be discharged from skilled therapy at this time, and will require a new referral in order to return to therapy. Physical Therapy Plan Discharge Physical Therapy Discharge Reasons No Longer Attending PT Next Visit Focus/Plan Next Note Type Discharge Summary
== END 2021-04-25 08:39 | disposition home or self-care (01) ==
LOC: PHYS 16:00
PROVIDERS: PCP Family Medicine; Referring Provider Family Medicine; Visit Provider Family Medicine
DX: M25.511 Pain in right shoulder (principal)
CPT/HCPCS: 97110; 97140; 97161